=== PATIENT | male | born 1990 | race Two or more races ===

== ENCOUNTER 2023-12-05 19:21 | Emergency (ER) | payer OTHER ==
[~2023-12-05] VITALS: Ht 180.3 cm; Wt 100.9 kg
[2023-12-05] MEDS: methocarbamoL 500 MG TAB PO ONE (21:12)
[2023-12-05] MEDS: predniSONE 20 MG TAB PO ONE (21:12)
[2023-12-05] MEDS: KETOROLAC 60MG 2ML VIAL IM ONE (21:13)
[2023-12-05 21:49] VITALS: BP 139/88; TEMP 98.6; O2SAT 98
[2023-12-05] MEDS ORDERED: PRED20TA PO (22:39)
[2023-12-05] MEDS ORDERED: IBUP-1022 PO (22:39)
[2023-12-05] MEDS ORDERED: METH-1164 PO (22:39)
== END 2023-12-05 22:46 | disposition home or self-care (01) ==
LOC: M ED 19:21
DX: M54.2 Cervicalgia (principal); M54.50 Low back pain, unspecified; K21.9 Gastro-esophageal reflux disease without esophagitis; F17.290 Nicotine dependence, other tobacco product, uncomplicated
CPT/HCPCS: 72110; 72125; 96372; 99283; J1885; J7512